=== PATIENT | female | born 2000 | race Caucasian/White ===

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

== ENCOUNTER 2019-05-14 23:00 | Emergency (ER) | payer OTHER ==
[~2019-05-14 23:00] MED LIST changes: +CEFTIN500 MG PO; +CLEOCIN HCL300 MG PO; +ENTYVIO IV; +NORCO 325 MG-7.1 TAB PO; +PREDNISONE10 MG PO; +ZOFRAN ODT4 MG PO
== END 2019-05-14 23:39 | disposition left against medical advice (07) ==
LOC: COL.ER 23:00
DX: Z72.9 Problem related to lifestyle, unspecified (principal)

== ENCOUNTER 2019-06-08 18:22 | Inpatient (IN) | payer BC ==
[~2019-06-08] VITALS: Ht 152.4 cm; Wt 47.0 kg
[2019-06-08] MEDS ORDERED: ALBUTEROL S0.4 MG/ML PO (18:42)
[2019-06-08 19:23] LABS: BASO % 0.5 % (0.0-2.0); EOS # 0.5 (0.0-0.7); EOS % 8.2 % (0-4.0); GRAN # 3.3 (1.4-6.5); HEMATOCRIT 37.2 % (35.0-45.0); HEMOGLOBIN 11.5 g/dl (12.0-15.0); LYMPH % 17.9 % (20.0-51.0); MEAN CELL VOLUME 76 fl (80.0-95.0); MEAN CORPUSCULAR HEMOGLOBIN 24 pg (26.0-32.0); MEAN CORPUSCULAR HGB CONC 31 g/dl (33.0-37.0); MEAN PLATELET VOLUME 8.8 fl (7.4-10.4); MONO # 0.7 (0.1-0.6); MONO % 11.9 % (1.7-9.3); PLATELET COUNT 375 K/mm3 (130-400); REDCELL DISTRIBUTION WIDTH-CV 19.1 % (11.5-14.5)
[2019-06-08 19:35] LABS: ALBUMIN 3.5 gm/dL (3.5-5.0); BILIRUBIN,TOTAL 0.3 mg/dL (0.0-1.0); C-REACTIVE PROTEIN 7.4 mg/dL (0.0-0.9); CALCIUM 8.8 mg/dL (8.4-10.2); CREATININE, serum 0.59 (0.52-1.25); POTASSIUM 3.6 mmol/L (3.4-5.0)
[2019-06-08 20:36] LABS: ERYTHROCYTE SEDIMENTATION RATE 43 mm/hr (0-20)
[2019-06-08 20:50] LABS: COLLECTION METHOD CLEAN CATCH
[2019-06-08 21:11] LABS: MUCOUS Present /lpf; PH 5 (5-8); SQUAMOUS EPITHELIAL 0-2 /hpf; URINE APPEARANCE Hazy; URINE BACTERIA None Seen /hpf; URINE BILIRUBIN Negative (NEGATIVE); URINE BLOOD Negative (NEGATIVE); URINE COLOR Yellow; URINE GLUCOSE Negative (NEGATIVE); URINE KETONE Negative (NEGATIVE); URINE LEUKOCYTE ESTERASE 1+ (NEGATIVE); URINE NITRATE Negative (NEGATIVE); URINE PROTEIN(semi-quant) Negative (NEGATIVE); URINE UROBILINOGEN Negative (NEGATIVE)
[2019-06-08 23:12] VITALS: BP 101/59; PULSE 98; TEMP 98.8
[2019-06-08] MEDS ORDERED: [UNRECOGNIZED DRUG - REMARK] (23:29)
--- NOTE | 2019-06-08 23:43 | NUR ---
Arrived to medical floor. Assessment completed. Lungs clear. Heart sounds normal. Bowels active x4. Pulses strong throughout. No edema. IV left AC without complications. Patient answered yes to suicidal questions-states considered jumping off a building. "I havent had thoughts for about 2 weeks, but I have been thinking about it on and off." House supervisior notified and Karime Alcantara APRN notified. Patient placed on suicidal precautions. All questions answered. Patient cooperative with all cares. SvenfrMicah marquez, at bedside.
[2019-06-09] VITALS (11 sets, daily range): BP systolic 90–101; BP diastolic 51–69; PULSE 98–123; TEMP 97.7–99.9
[2019-06-09] MEDS ORDERED: PROAIR HFA0.09 MG/AC IH (00:07)
[2019-06-09 00:27] LABS: ACETAMINOPHEN < 10 ug/mL (10-30); ALCOHOL(ethanol),MEDICAL < 10 mg/dL; SALICYLATE < 1.0 mg/dL
[2019-06-09 00:50] LABS: TRICYCLIC ANTIDEPRESS URINE NEGATIVE
--- NOTE | 2019-06-09 03:26 | NUR ---
WEB WORKER reports patient pulse 123 on dynamap. Apical pulse 120. No pain and no sx at this time. Attempted to contact Karime ARIAS-no answer will try again.
--- NOTE | 2019-06-09 03:30 | NUR ---
Spoke with HUGO Schaffer. x1 bolus of fluids, telemetry, and EKG.
--- NOTE | 2019-06-09 04:30 | NUR ---
Patient pulse 103 on telemetry. Will continue to monitor.
--- NOTE | 2019-06-09 06:13 | NUR ---
Rating pain 7/10 in ABD and head. Provided with PRN dilaudid at patient request. Denies other needs. Sitter remains in room with patient.
--- NOTE | 2019-06-09 06:19 | NUR ---
Patient tachycardia throughout night. Required tylenol and dilaudid for ABD pain and headache throughout night. Patient on suicide precautions-1:1 sitter remained in room with patient throughout night. Resting in bed this AM.
[2019-06-09 07:01] LABS: BASO % 0.4 % (0.0-2.0); EOS # 0.3 (0.0-0.7); EOS % 5.6 % (0-4.0); GRAN # 2.9 (1.4-6.5); GRAN % 57.6 % (42.2-75.2); LYMPH % 20.5 % (20.0-51.0); MEAN CELL VOLUME 77 fl (80.0-95.0); MEAN CORPUSCULAR HGB CONC 30 g/dl (33.0-37.0); MEAN PLATELET VOLUME 8.7 fl (7.4-10.4); MONO # 0.8 (0.1-0.6); MONO % 15.5 % (1.7-9.3); PLATELET COUNT 314 K/mm3 (130-400); RED BLOOD COUNT 4.05 M/mm3 (4.10-5.30); REDCELL DISTRIBUTION WIDTH-CV 18.8 % (11.5-14.5)
--- NOTE | 2019-06-09 07:08 | NUR ---
Report given to CHRISTINE Elizabeth. Consults called this AM to GI and urology.
[2019-06-09 07:22] LABS: HEMOGLOBIN 9.4 g/dl (12.0-15.0); MEAN CORPUSCULAR HEMOGLOBIN 23 pg (26.0-32.0)
[2019-06-09 07:25] LABS: C-REACTIVE PROTEIN 6.6 mg/dL (0.0-0.9); CALCIUM 7.6 mg/dL (8.4-10.2); CREATININE, serum 0.64 (0.52-1.25); POTASSIUM 3.3 mmol/L (3.4-5.0)
--- NOTE | 2019-06-09 07:45 | NUR ---
Patient resting in bed, ex boyfriend on the couch. Patient asleep but easily awakened. A&Ox3 reporting having a headache. Nursing staff present in the room. VSS. IV CDI, fluids infusing. Suicide precautions in place. No further needs expressed from patient. Call light within reach
--- NOTE | 2019-06-09 10:59 | NUR ---
SW attended clinical rounds. The patient's grandmother (Becca Isbell) and ex-boyfriend (Micah Veliz ph#[phone]) at bedside. The patient has been having suicidal ideation. Psych consulted, but not available until 06/12. [facility] to come screen the patient tomorrow, 06/10. ARCHIE then followed up with the patient alone to discuss discharge plan. 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 She states that she did not have a good home life growing up. Her father is out of the picture and she does not have much contact with her mother, Shashank Guevara. She states that she is still good friends with her ex-boyfriend. The patient has been receiving primary care at [facility] and she receives her medications at the [facility]. She reports occasional difficulties affording her meds. She states that she is getting on a payment plan for one of her meds. The patient does have a DPOA-HC completed. She designated her ex-boyfriend, Micah Veliz. She states that she still wants him as her DPOA-HC. Awaiting [facility] screen. SW to continue to follow.
--- NOTE | 2019-06-09 18:58 | NUR ---
Patient has had an uneventful day. The ex boyfriend and mother have been with the patient most of the shift. The patient was transfered from room 307 to 312 closer to the nurses station and no longer requiring a 1:1 sitter. Patient is A&Ox3, reporting nausea and a headache. Pain medication and nausea medication given when requested. VSS. IV CDI, fluids infusing. Nursing staff providing close monitoring of patient. Call light within reach.
--- NOTE | 2019-06-09 20:00 | NUR ---
Patient assessed at this time. Alert and oriented x 4, and able to make needs known. Reported nausea and pain to abdomen. Declined PRN pain medication at this time. Did take oral Zofran for nausea. NS running at 150 ml/hr to peripheral IV to left AC. Site is without redness, warmth, swelling, and pain. LS CTA. Respirations even and unlabored. Denies SOB and dyspnea. HRR. Telemetry on-sinus tachycardia. Capillary refill less than 3 seconds. Non-tenting skin turgor. BSAx4. Denies burning, pain, and discomfort with urination. Did report some diarrhea earlier. Continues on suicide risk observation. Denies having any questions, needs, or concerns at this time. Resting in bed on phone and laptop. Call light is within reach.
--- NOTE | 2019-06-10 00:29 | NUR ---
Patient complaining of nausea. Given PRN Zofran as requested. Voices no questions, needs, or concerns at this time. Resting in bed watching laptop at this time.
--- NOTE | 2019-06-10 04:00 | NUR ---
Patient woke up complaining of level 8 pain to abdomen. Given PRN Dilaudid per orders. Given warm blanket as requested. Voices no other questions, needs, or concerns at this time. Male friend at bedside at this time. Resting in bed with call light within reach. Suicide risk observation continues.
[2019-06-10 04:42] VITALS: BP 85/45; PULSE 100; TEMP 98.2
--- NOTE | 2019-06-10 05:55 | NUR ---
No further complaints of pain or discomfort at this time. When brush clearing laborer attempted to draw labs, patient refused, stating that she has bad veins and needs to keep good veins for IV sites. Spoke with hotel houseman. Attempting fingerstick at this time. Friend remains at bedside. Voices no other questions, needs, or concerns. NS continues to run at 150 ml/hr to left AC.
[2019-06-10 06:23] LABS: BASO % 0.3 % (0.0-2.0); EOS # 0.4 (0.0-0.7); EOS % 7.5 % (0-4.0); GRAN # 3.9 (1.4-6.5); GRAN % 67.8 % (42.2-75.2); HEMOGLOBIN 10.5 g/dl (12.0-15.0); LYMPH # 0.8 (1.2-3.4); LYMPH % 14.3 % (20.0-51.0); MEAN CELL VOLUME 74 fl (80.0-95.0); MEAN CORPUSCULAR HEMOGLOBIN 23 pg (26.0-32.0); MEAN CORPUSCULAR HGB CONC 32 g/dl (33.0-37.0); MEAN PLATELET VOLUME 8.5 fl (7.4-10.4); MONO # 0.6 (0.1-0.6); MONO % 9.6 % (1.7-9.3); PLATELET COUNT 329 K/mm3 (130-400); RED BLOOD COUNT 4.48 M/mm3 (4.10-5.30)
[2019-06-10 06:24] LABS: HEMATOCRIT 33.3 % (35.0-45.0)
[2019-06-10 06:54] LABS: CALCIUM 8.2 mg/dL (8.4-10.2); CREATININE, serum 0.58 (0.52-1.25); POTASSIUM 3.9 mmol/L (3.4-5.0)
[2019-06-10 08:23] VITALS: BP 86/50; PULSE 98; TEMP 98.1
--- NOTE | 2019-06-10 08:42 | NUR ---
Pt assessment complete. Pt is sleeping in bed upon entry, she arouses to voice. She currently denies pain but reports some nausea, PRN Zofran administered. Pt denies SOB or chest pain/palpitations despite having tachycardia while ambulating. IVF infusing without complications. Pt denies needs or questions at this time. Remains within view of the nursing desk.
--- NOTE | 2019-06-10 10:16 | NUR ---
Pt reporting middle abdominal pain 7/10, PRN pain medication administered. POC discussed with patient and reasoning for [facility] screening discussed with patient.
--- NOTE | 2019-06-10 12:23 | NUR ---
Supervisory Lifeguard stopped by but nothing needed at this time. Visited briefly with patient.
[2019-06-10 12:35] VITALS: BP 109/68; PULSE 99; TEMP 98.4
[2019-06-10] MEDS ORDERED: OMNICEF 300MG300 MG PO (14:35)
[2019-06-10] MEDS ORDERED: ZOFRAN ODT4 MG PO (14:36)
[2019-06-10] MEDS ORDERED: NORCO 325 MG-51 TAB PO (14:36)
--- NOTE | 2019-06-10 14:47 | NUR ---
This ARCHIE received a call from Patients nurse Maggie, who reported that [facility] indicated that the patient did not need a full screening. This ARCHIE spoke with Patient, who indicated that last S/I was 2 weeks ago, but that she had been busy. Patient did indicated that when alone she does have continual S/I, and she was due to be discharged today. ARCHIE contacted [facility] and spoke to Luz Marina who indicated that the Sign Shop Supervisor reported that the patient did not need a full screening unless she was a child. This ARCHIE spoke to her second shift supervisor, and then contacted live in housekeeper. [facility] was contacted again, and Galo agreed to complete a screening and a safety plan. [facility] faxed safety plan here, where patient signed the plan, and it was faxed back to [facility]. A copy was given to the nurse for the Dr to view, and ARCHIE took a copy for supervisory view.
--- NOTE | 2019-06-10 15:17 | NUR ---
Discharge paperwork and instructions reviewed with patient. All questions answered at this time. Pt encouraged to seek help if suicide ideations return. Crisis and safety plan sent with patient. She verbalizes understanding. IV to LAC dc'd, catheter tip intact. Flu shot administered prior to discharge. Pt walked out at this time.
== END 2019-06-10 15:21 | disposition home or self-care (01) | DRG 690 ==
LOC: COL.ER 18:22 → MEDICAL 21:50
PROVIDERS: Emergency Medicine; Nurse Practitioner Family; Physician Assistant; ADMIT Internal Medicine
DX: N12 Tubulo-interstitial nephritis, not specified as acute or chronic (principal); K50.90 Crohn's disease, unspecified, without complications; R45.851 Suicidal ideations; K92.0 Hematemesis; C85.99 Non-Hodgkin lymphoma, unspecified, extranodal and solid organ sites; R00.0 Tachycardia, unspecified; J45.909 Unspecified asthma, uncomplicated; E87.6 Hypokalemia; I95.9 Hypotension, unspecified; D50.9 Iron deficiency anemia, unspecified; Z88.1 Allergy status to other antibiotic agents; Z88.8 Allergy status to other drugs, medicaments and biological substances
CPT/HCPCS: 99222-AI; 99239; A4216; C9113; J0696; J1170; J2405; J7030; Q9967

== ENCOUNTER 2019-06-18 02:19 | Emergency (ER) | payer BC ==
[~2019-06-18] VITALS: Ht 152.4 cm; Wt 45.5 kg
[~2019-06-18 02:19] MED LIST changes: +ALBUTEROL S0.4 MG/ML PO; +OMNICEF 300MG300 MG PO; +PROAIR HFA0.09 MG/AC IH; +[UNRECOGNIZED DRUG - REMARK]
[2019-06-18 02:26] VITALS: TEMP 97.6
[2019-06-18 03:31] LABS: COLLECTION METHOD CLEAN CATCH
[2019-06-18 03:34] LABS: BASO % 0.3 % (0.0-2.0); EOS # 0.4 (0.0-0.7); EOS % 3.9 % (0-4.0); GRAN # 6.4 (1.4-6.5); GRAN % 71.5 % (42.2-75.2); HEMOGLOBIN 10.9 g/dl (12.0-15.0); LYMPH # 1.3 (1.2-3.4); LYMPH % 14.4 % (20.0-51.0); MEAN CELL VOLUME 76 fl (80.0-95.0); MEAN CORPUSCULAR HEMOGLOBIN 24 pg (26.0-32.0); MEAN CORPUSCULAR HGB CONC 31 g/dl (33.0-37.0); MEAN PLATELET VOLUME 8.5 fl (7.4-10.4); MONO # 0.9 (0.1-0.6); MONO % 9.6 % (1.7-9.3); PLATELET COUNT 355 K/mm3 (130-400); REDCELL DISTRIBUTION WIDTH-CV 18.9 % (11.5-14.5)
[2019-06-18 03:37] LABS: MUCOUS Present /lpf; PH 6 (5-8); SQUAMOUS EPITHELIAL None Seen /hpf; URINE APPEARANCE Clear; URINE BACTERIA Rare /hpf; URINE BILIRUBIN Negative (NEGATIVE); URINE BLOOD Negative (NEGATIVE); URINE COLOR Yellow; URINE GLUCOSE Negative (NEGATIVE); URINE KETONE Negative (NEGATIVE); URINE LEUKOCYTE ESTERASE 1+ (NEGATIVE); URINE NITRATE Negative (NEGATIVE); URINE PROTEIN(semi-quant) Negative (NEGATIVE); URINE UROBILINOGEN Negative (NEGATIVE)
[2019-06-18 03:46] LABS: ALBUMIN 3.4 gm/dL (3.5-5.0); BILIRUBIN,TOTAL 0.2 mg/dL (0.0-1.0); C-REACTIVE PROTEIN 6.4 mg/dL (0.0-0.9); CREATININE, serum 0.83 (0.52-1.25); POTASSIUM 3.9 mmol/L (3.4-5.0); TOTAL PROTEIN 6.7 gm/dL (6.4-8.2)
[2019-06-18 04:30] VITALS: BP 101/74
[2019-06-18] MEDS ORDERED: PERCOCET 325 MG1 TA2 PO (04:55)
[2019-06-18] MEDS ORDERED: PHENERGAN 25 TA25 MG PO (04:59)
[2019-06-18 06:00] VITALS: PULSE 70
== END 2019-06-18 06:20 | disposition home or self-care (01) ==
LOC: COL.ER 02:19
PROVIDERS: Emergency Medicine
DX: N12 Tubulo-interstitial nephritis, not specified as acute or chronic (principal)
CPT/HCPCS: A4216; J0696; J1885; J2270; J2550; J7030

== ENCOUNTER 2019-07-12 00:29 | Emergency (ER) | payer BC ==
[~2019-07-12] VITALS: Ht 154.9 cm; Wt 43.2 kg
[~2019-07-12 00:29] MED LIST changes: +PERCOCET 325 MG1 TA2 PO
[2019-07-12 00:33] VITALS: TEMP 99.1
[2019-07-12 00:51] LABS: BASO % 0.4 % (0.0-2.0); EOS # 0.2 (0.0-0.7); GRAN # 5.6 (1.4-6.5); GRAN % 66.3 % (42.2-75.2); HEMATOCRIT 37.4 % (35.0-45.0); HEMOGLOBIN 11.9 g/dl (12.0-15.0); LYMPH # 1.6 (1.2-3.4); LYMPH % 18.4 % (20.0-51.0); MEAN CELL VOLUME 76 fl (80.0-95.0); MEAN CORPUSCULAR HEMOGLOBIN 24 pg (26.0-32.0); MEAN CORPUSCULAR HGB CONC 32 g/dl (33.0-37.0); MEAN PLATELET VOLUME 8.3 fl (7.4-10.4); MONO # 1.1 (0.1-0.6); MONO % 12.5 % (1.7-9.3); PLATELET COUNT 374 K/mm3 (130-400); REDCELL DISTRIBUTION WIDTH-CV 17.5 % (11.5-14.5)
[2019-07-12 01:06] LABS: ALBUMIN 3.5 gm/dL (3.5-5.0); BILIRUBIN,TOTAL 0.2 mg/dL (0.0-1.0); C-REACTIVE PROTEIN 6.1 mg/dL (0.0-0.9); CALCIUM 8.9 mg/dL (8.4-10.2); CREATININE, serum 0.72 (0.52-1.25); POTASSIUM 4.5 mmol/L (3.4-5.0); TOTAL PROTEIN 6.7 gm/dL (6.4-8.2)
[2019-07-12] MEDS ORDERED: MIRENA52 MG IY (01:14)
[2019-07-12] MEDS ORDERED: VANCOCIN H250 MG/CAP PO (01:15)
[2019-07-12 02:39] LABS: COLLECTION METHOD CLEAN CATCH
[2019-07-12 02:44] LABS: MUCOUS Present /lpf; PH 7 (5-8); SQUAMOUS EPITHELIAL 0-2 /hpf; URINE APPEARANCE Clear; URINE BACTERIA None Seen /hpf; URINE BILIRUBIN Negative (NEGATIVE); URINE BLOOD Negative (NEGATIVE); URINE COLOR Straw; URINE GLUCOSE Negative (NEGATIVE); URINE KETONE Negative (NEGATIVE); URINE LEUKOCYTE ESTERASE Negative (NEGATIVE); URINE NITRATE Negative (NEGATIVE); URINE PROTEIN(semi-quant) Negative (NEGATIVE); URINE RBC 0-2 /hpf; URINE UROBILINOGEN Negative (NEGATIVE)
[2019-07-12] MEDS ORDERED: NORCO 325 MG-51 TAB PO (02:58)
[2019-07-12] MEDS ORDERED: ZOFRAN 4MG T4 MG/TAB PO (02:58)
[2019-07-12 03:39] VITALS: BP 111/72; PULSE 98
== END 2019-07-12 03:39 | disposition home or self-care (01) ==
LOC: COL.ER 00:29
PROVIDERS: Emergency Medicine
DX: R11.2 Nausea with vomiting, unspecified (principal); R19.7 Diarrhea, unspecified; R10.84 Generalized abdominal pain; J45.909 Unspecified asthma, uncomplicated; Z87.19 Personal history of other diseases of the digestive system
CPT/HCPCS: J1630; J2405; J3010; J7030; Q9967

== ENCOUNTER 2019-07-31 22:05 | Inpatient (IN) | payer BC ==
[~2019-07-31] VITALS: Ht 152.4 cm; Wt 52.6 kg
[~2019-07-31 22:05] MED LIST changes: +MIRENA52 MG IY; +VANCOCIN H250 MG/CAP PO; +ZOFRAN 4MG T4 MG/TAB PO
[2019-07-31 22:57] LABS: BASO % 0.4 % (0.0-2.0); EOS # 0.4 (0.0-0.7); EOS % 4.6 % (0-4.0); GRAN # 5.5 (1.4-6.5); GRAN % 67.3 % (42.2-75.2); HEMOGLOBIN 11.7 g/dl (12.0-15.0); LYMPH # 1.3 (1.2-3.4); LYMPH % 15.7 % (20.0-51.0); MEAN CELL VOLUME 79 fl (80.0-95.0); MEAN CORPUSCULAR HEMOGLOBIN 25 pg (26.0-32.0); MEAN CORPUSCULAR HGB CONC 32 g/dl (33.0-37.0); MEAN PLATELET VOLUME 8.2 fl (7.4-10.4); MONO # 0.9 (0.1-0.6); MONO % 11.1 % (1.7-9.3); PLATELET COUNT 328 K/mm3 (130-400); RED BLOOD COUNT 4.67 M/mm3 (4.10-5.30)
[2019-07-31 23:10] LABS: ALBUMIN 2.9 gm/dL (3.5-5.0); BILIRUBIN,TOTAL 0.2 mg/dL (0.0-1.0); C-REACTIVE PROTEIN 5.3 mg/dL (0.0-0.9); CALCIUM 8.3 mg/dL (8.4-10.2); CREATININE, serum 0.55 (0.52-1.25); POTASSIUM 3.9 mmol/L (3.4-5.0); TOTAL PROTEIN 5.8 gm/dL (6.4-8.2)
[2019-07-31] MEDS ORDERED: PRILOSEC10 MG PO (23:16)
[2019-07-31] MEDS ORDERED: QUESTRAN4 GM/9 GM PO (23:16)
[2019-07-31] MEDS ORDERED: PROZAC 10MG10 MG PO (23:16)
[2019-07-31] MEDS ORDERED: PROMETHAZINE12.5 M5 PO (23:16)
[2019-07-31 23:58] LABS: COLLECTION METHOD CLEAN CATCH
[2019-08-01] VITALS (22 sets, daily range): BP systolic 92–133; BP diastolic 50–80; PULSE 18–146; TEMP 98–103.1; O2SAT 99
[2019-08-01 00:09] LABS: MUCOUS Present /lpf; PH 6 (5-8); SQUAMOUS EPITHELIAL 0-2 /hpf; URINE APPEARANCE Clear; URINE BACTERIA None Seen /hpf; URINE BILIRUBIN Negative (NEGATIVE); URINE BLOOD Negative (NEGATIVE); URINE COLOR Yellow; URINE GLUCOSE Negative (NEGATIVE); URINE KETONE Negative (NEGATIVE); URINE LEUKOCYTE ESTERASE Trace (NEGATIVE); URINE NITRATE Negative (NEGATIVE); URINE PROTEIN(semi-quant) Negative (NEGATIVE); URINE RBC 0-2 /hpf; URINE UROBILINOGEN Negative (NEGATIVE)
--- NOTE | 2019-08-01 02:10 | NUR ---
Report received from Vicki CRAYON GRADER and patient admitted to room 242. Patient alert and oriented x 4. Patient received IV dilaudid just prior to admit to floor and requesting pain med for RLQ abdominal pain 8/10 intermittent sharp pain. Jodie ARIAS phoned and no answer at this time.
--- NOTE | 2019-08-01 02:40 | NUR ---
Jodie ARIAS called and new order for dilaudid IV now obtained and given SIV. Patient rests in bed. Mouth swabs given for dry mouth. IVF's and rocephin reviewed and begun. See admission assessment.
[2019-08-01] MEDS ORDERED: LOTRIMIN15 GM TOP (03:14)
--- NOTE | 2019-08-01 03:15 | NUR ---
Patient reports pain decreased to 5/10 at this time.
--- NOTE | 2019-08-01 04:42 | NUR ---
New orders received for mso4 for continued RLQ abdominal pain 7-8/10 on pain scale and given. SCD's applied. Tele and RT notified of new orders. Phenergan given IV in 50mls bag as ordered for nausea/no emesis. Patient rests with eyes closed around 10-15 minutes following IV morphine. Stool for occult blood card and new hat placed in bathroom.
--- NOTE | 2019-08-01 05:29 | NUR ---
Patient rests with eyes closed. Respirations shallow with ease.
--- NOTE | 2019-08-01 06:30 | NUR ---
Reported on to CHRISTINE Alejandre
[2019-08-01 06:58] LABS: HEMATOCRIT 30.6 % (35.0-45.0); HEMOGLOBIN 9.6 g/dl (12.0-15.0)
--- NOTE | 2019-08-01 09:49 | NUR ---
Concrete Bucket Hooker met with the patient to discuss discharge planning. Patient lives alone in [place] and works at [employer]. Patient states she has no family support in the area. Patient also states she sees Jennifer Pham for primary care and obtains medications from [facility] pharmacy. Patient is independent with ADLS and does not use any DME. Patient has Advance Directives in EMR. Patient plans to return home upon discharge. SW to continue to follow as needed.
--- NOTE | 2019-08-01 09:50 | NUR ---
Patient drowsy, awakens to verbal stimuli. Closes eyes and turns away multiple times during assessment. Abdomen soft, non tender, non distended. Bowel sounds active x4 quads. +Flatus. No bowel movement. Requests to be left alone to sleep.
--- NOTE | 2019-08-01 10:01 | NUR ---
Shift assessment completed. Pt presents with RLQ pain. States pain is at 7-8/10 intermittent sharp pain. Admits nausea. Denies vomiting. Remains NPO due to bowel rest. IV in L antecubital NS 1000 Ml @ 150 Ml/hr. Is on tele. SCDs to BLE.
--- NOTE | 2019-08-01 10:53 | NUR ---
Reported off to Pili KING
--- NOTE | 2019-08-01 10:55 | NUR ---
Dr Redd notified of consult.
[2019-08-01 11:27] LABS: MAGNESIUM 1.4 mg/dL (1.6-2.3); PHOSPHOROUS 3.5 mg/dL (2.5-4.5)
--- NOTE | 2019-08-01 11:31 | NUR ---
Loader Operator attended clinical rounds with the team. Hospitalist discussed oncology consultation with patient. SW to continue to follow as needed.
--- NOTE | 2019-08-01 11:31 | NUR ---
Dr Burnett notified of consult.
[2019-08-01 11:34] LABS: PRE ALBUMIN 12.2 mg/dL (17.6-36.0)
--- NOTE | 2019-08-01 18:35 | NUR ---
Attempts made by two RNs and MASTER GREAT LAKES for multiple IV starts. Per MASTER GREAT LAKES recommendations, surgery consult for central line placement, order received and Dr Egan notified. Patient to PACU with PACU staff at 1825.
[2019-08-01 19:05] LABS: HEMATOCRIT 43.3 % (35.0-45.0)
[2019-08-01 19:08] LABS: IRON,SERUM 54 ug/dL (35-150)
[2019-08-01 19:18] LABS: TOTAL IRON BINDING CAPACITY 232 ug/dL (265-497)
[2019-08-01 19:21] LABS: HEMOGLOBIN 13.3 g/dl (12.0-15.0)
--- NOTE | 2019-08-01 20:15 | NUR ---
PATIENT BACK FROM PACU, POST CENTRAL LINE PLACEMENT TO RIGHT CHEST, IVF ATTACHED TO TLSC PORTS WITH PATIENT REQUESTING SUPERVISOR VENDOR QUALITY SET BEFORE VS CAN BE TAKEN. TEMP REPORTED AT 102.9 DEGREES ORALLY, REPORTED TO A DOREEN MANAGER CT, ORDERS GIVEN. ATTEMPTED TO GIVE TYLENOL SUPP THAT PATIENT REFUSED, HELENA DE GUZMANN INFORMED WITH ORDERS FOR ORAL TYLENOL ORDERED AND GIVEN TO PATIENT. IVF NS BOLUS STARTED ORDERED
--- NOTE | 2019-08-01 21:20 | NUR ---
REPORT CALLED TO NAKUL RENTERIA, TO BE TRANSFERED TO ICU BED 7
[2019-08-02] VITALS (259 sets, daily range): BP systolic 90–110; BP diastolic 49–77; PULSE 67–106; TEMP 97.4–98.8; O2SAT 38–100
--- NOTE | 2019-08-02 01:35 | NUR ---
2114 - REPORT RECEIVED FROM CHRISTINE NUNEZ. 2139 - PT ARRIVED IN UNIT, TRANSFER FROM SURGICAL FLOOR TO ICU. PT CRYING SHE WAS TRYING TO TRANSFER HERSELF TO BED. PT VERBALIZED SHE IS REALLY CLAUSTROPHOBIC. PT FINALLY CALMED DOWN 15 MINS LATER.
[2019-08-02 05:20] LABS: MEAN CELL VOLUME 81 fl (80.0-95.0); MEAN CORPUSCULAR HGB CONC 31 g/dl (33.0-37.0); MEAN PLATELET VOLUME 8.3 fl (7.4-10.4); PLATELET COUNT 245 K/mm3 (130-400); RED BLOOD COUNT 4.18 M/mm3 (4.10-5.30); REDCELL DISTRIBUTION WIDTH-CV 16.4 % (11.5-14.5)
[2019-08-02 05:24] LABS: HEMATOCRIT 33.8 % (35.0-45.0); HEMOGLOBIN 10.4 g/dl (12.0-15.0); MEAN CORPUSCULAR HEMOGLOBIN 25 pg (26.0-32.0)
[2019-08-02 05:29] LABS: ALBUMIN 2.3 gm/dL (3.5-5.0); BILIRUBIN,TOTAL 2.1 mg/dL (0.0-1.0); CREATININE, serum 0.66 (0.52-1.25); POTASSIUM 3.8 mmol/L (3.4-5.0); TOTAL PROTEIN 4.9 gm/dL (6.4-8.2)
[2019-08-02 06:06] LABS: ANISOCYTOSIS 1+; BAND 62 % (0-10); EOSINOPHIL 2 % (0-4); LYMPHOCYTE 10 % (20.0-51.0); NEUTROPHILS 19 % (42.0-75.2); OVALOCYTES 1+; PLATELET ESTIMATE NORMAL (NORMAL)
--- NOTE | 2019-08-02 07:25 | NUR ---
REPORT GIVEN TO CHRISTINE QUILES.
--- NOTE | 2019-08-02 08:00 | NUR ---
SPOKE TO PT'S NURSE, ETTA, AND LET HER KNOW WE WOULD GET PATIENT AROUND 1200 FOR THE BIOPSY. THE BIOPSY MAY BE DONE IN EITHER CT OR ULTRASOUND. I SPOKE TO THE NURSE AND ASKED HER TO PUT BOTH ON HER CONSENT.
[2019-08-02 10:32] LABS: INR 1.1 (0.8-3.0); PROTHROMBIN TIME 12.6 SECONDS (9.7-12.8)
--- NOTE | 2019-08-02 13:05 | NUR ---
PT WAS BROUGHT IN TO CT ROOM IN WHEELCHAIR AND ASSISTED ONTO CT BED. MONITORING EQUIPMENT PLACED ON PT. IVF NS @ 150 CC/HR, ZOSYN @ 20 CC/HR, MORPHINE SOLAR INSTALLATION MANAGER DEMAND ONLY, 27.5 MG IN SYRINGE. IMAGING DONE.
--- NOTE | 2019-08-02 13:26 | NUR ---
First visit from the dock clerk. No needs right now.
--- NOTE | 2019-08-02 13:30 | NUR ---
SPECIMEN X3 OBTAINED AT 1326. PT WAS CLEANED UP AND BANDAIDE PLACED OVER THE SITE. MONITORING EQUIPMENT EQUIPMENT REMOVED. PT WAS ASSISTED BACK TO WHEELCHAIR AND TAKEN BACK TO ICU 7.
--- NOTE | 2019-08-02 13:58 | NUR ---
PT ASKED FOR THE INNER TUBE INSERTER AND WAS GIVEN 1 MG MORPHINE, SYRINGE 26.5.
--- NOTE | 2019-08-02 14:03 | NUR ---
REPORT CALLED TO PT'S NURSE.
--- NOTE | 2019-08-02 14:23 | NUR ---
CBX OPERATOR student met with the patient. The patient was concerned about not always being able to olive picker her medications. A list of pharmacies that deliver medications provided to the patient. horticultural services supervisor will continue to follow.
--- NOTE | 2019-08-02 14:36 | NUR ---
SPOKE WITH REGARDING TPN AND BANANA BAG ORDERS. WILL DC BANANA BAG. ALSO CHANGED IV PROMETHAZINE TO PO WHICH PT TAKES AT HOME. PT STATES SHE HAS TAKEN HUMIRA BEFORE WITH NO REACTION. DR OQUENDO ASKED THAT WE NOTIFY GI OF ABOVE. SPOKE WITH REGARDING PT PREVIOUSLY TAKEN HUMIRA WITH NO REACTION. STATES CONTIUE WITH PREMEDICATIONS PLANNED.
[2019-08-02 17:15] LABS: MAGNESIUM 1.6 mg/dL (1.6-2.3); PHOSPHOROUS 4.2 mg/dL (2.5-4.5)
[2019-08-02 17:21] LABS: PRE ALBUMIN 9.6 mg/dL (17.6-36.0)
--- NOTE | 2019-08-02 20:55 | NUR ---
REPORT GIVEN TO CHRISTINE BELTRAN. PT TRANSFERRED TO ROOM 16.
--- NOTE | 2019-08-02 21:00 | NUR ---
Assessment complete at this time. Patient has TLC cath to RIJ infusing TPN. Reports stomach pain, provided with warm blanket-pain resolved. Denies other needs at this time. [employer] morphine replaced and verified by CHRISTINE Crawford. Call light in reach.
--- NOTE | 2019-08-02 21:55 | NUR ---
Patient wanting to eat sandwich. Requested phenergan prior to eating. Obtained one time order for phenergan at this time. Denies other needs. Call light in reach.
--- NOTE | 2019-08-02 23:06 | NUR ---
Patient woke up screaming. States "I have PTSD and had a nightmare." Stayed with patient until no longer crying. Denies other needs at this time. Will monitor.
[2019-08-03] VITALS (403 sets, daily range): BP systolic 90–110; BP diastolic 57–70; PULSE 60–105; TEMP 97.7–98.3; O2SAT 86–100
--- NOTE | 2019-08-03 00:10 | NUR ---
Resting in bed. Denies needs. Reports 03/08 pain ABD and "kidney" pain. Used PROJECT DESIGNER. Denies other needs at this time. Call light in reach.
--- NOTE | 2019-08-03 02:35 | NUR ---
Up to restroom and returned to bed. Denies other needs. Call light in reach.
--- NOTE | 2019-08-03 06:16 | NUR ---
Patient ambulating in hallway at this time with assistance from staff and returned to bed. Denies other needs. call light in reach.
--- NOTE | 2019-08-03 07:34 | NUR ---
Patient resting in bed this AM. Provided with tea and clean gown. Denies other needs. Report given to CHRISTINE Gomez
[2019-08-03 07:53] LABS: MEAN CELL VOLUME 82 fl (80.0-95.0); MEAN CORPUSCULAR HGB CONC 31 g/dl (33.0-37.0); MEAN PLATELET VOLUME 8.6 fl (7.4-10.4); PLATELET COUNT 277 K/mm3 (130-400); RED BLOOD COUNT 3.75 M/mm3 (4.10-5.30); REDCELL DISTRIBUTION WIDTH-CV 16.5 % (11.5-14.5)
[2019-08-03 07:54] LABS: ALBUMIN 2.2 gm/dL (3.5-5.0); BILIRUBIN,TOTAL 0.1 mg/dL (0.0-1.0); CALCIUM 7.3 mg/dL (8.4-10.2); CREATININE, serum 0.54 (0.52-1.25); MAGNESIUM 1.8 mg/dL (1.6-2.3); PHOSPHOROUS 2.4 mg/dL (2.5-4.5); POTASSIUM 4.1 mmol/L (3.4-5.0); TOTAL PROTEIN 4.5 gm/dL (6.4-8.2)
[2019-08-03 08:14] LABS: HEMATOCRIT 30.7 % (35.0-45.0); HEMOGLOBIN 9.4 g/dl (12.0-15.0); MEAN CORPUSCULAR HEMOGLOBIN 25 pg (26.0-32.0)
[2019-08-03 09:02] LABS: BAND 59 % (0-10); LYMPHOCYTE 7 % (20.0-51.0); MYELOCYTE 2 % (0-0); NEUTROPHILS 22 % (42.0-75.2)
[2019-08-03 09:08] LABS: PLATELET ESTIMATE NORMAL (NORMAL)
[2019-08-03 09:09] LABS: HYPOCHROMIA 2+; MICROCYTOSIS 1+
[2019-08-03 09:10] LABS: ANISOCYTOSIS 1+
--- NOTE | 2019-08-03 12:00 | NUR ---
MORPHINE ACADEMIC ADVISER SYRINGE EMPTY. SYRINGE DISCARDED IN MED ROOM IN SHARPS CONTAINER. PAIN MEDICATION CHANGED TO PO.
--- NOTE | 2019-08-03 13:19 | NUR ---
The patient is to move to medical floor this day. Amazal from nutrition department reports the patient will most likely need home TPN at discharge. corporate services manager will continue to follow.
--- NOTE | 2019-08-03 16:04 | NUR ---
PT RESTING COMFORTABLY AT THIS TIME.
--- NOTE | 2019-08-03 19:25 | NUR ---
RECEIVED REPORT FROM CHRISTINE ROLLINS. PT LYING IN BED PLAYING ON COMPUTER. PT ASKS WHEN SHE CAN HAVE PAIN MEDICATION, NOTIFIED PT NOT UNTIL AT LEAST 2100, SEE MAR FOR ADMINISTRATION. VERBALIZED UNDERSTADING. CALL LIGHT WITHIN REACH. PT ON 1L VIA [place]. NO ACUTE S/S OF RESP DISTRESS NOTED.
[2019-08-04] VITALS (241 sets, daily range): BP systolic 90–110; BP diastolic 50–72; PULSE 66–78; TEMP 97.6–98.3; O2SAT 97–100
[2019-08-04 05:15] LABS: MEAN CELL VOLUME 83 fl (80.0-95.0); MEAN CORPUSCULAR HGB CONC 31 g/dl (33.0-37.0); MEAN PLATELET VOLUME 8.2 fl (7.4-10.4); PLATELET COUNT 248 K/mm3 (130-400); RED BLOOD COUNT 3.66 M/mm3 (4.10-5.30); REDCELL DISTRIBUTION WIDTH-CV 17.1 % (11.5-14.5)
[2019-08-04 05:16] LABS: HEMATOCRIT 30.2 % (35.0-45.0); HEMOGLOBIN 9.4 g/dl (12.0-15.0); MEAN CORPUSCULAR HEMOGLOBIN 26 pg (26.0-32.0)
[2019-08-04 05:26] LABS: ALANINE AMINOTRANSFERASE 12 U/L (9-52); ALBUMIN 2.1 gm/dL (3.5-5.0); ALKALINE PHOSPHATASE 50 U/L (50-136); ANION GAP 2 mmol/L (7-16); AST,SGOT 9 U/L (15-37); BILIRUBIN,TOTAL < 0.1 mg/dL (0.0-1.0); BLOOD UREA NITROGEN 12 mg/dL (7-17); CALCIUM 7.7 mg/dL (8.4-10.2); CARBON DIOXIDE 28 mmol/L (22-30); CHLORIDE 110 mmol/L (98-107); GLUCOSE 88 mg/dL (74-106); MAGNESIUM 2.1 mg/dL (1.6-2.3); PHOSPHOROUS 3.3 mg/dL (2.5-4.5); POTASSIUM 3.9 mmol/L (3.4-5.0); SODIUM 141 mmol/L (137-145); TOTAL PROTEIN 4.3 gm/dL (6.4-8.2)
[2019-08-04 05:50] LABS: ANISOCYTOSIS 1+; BAND 34 % (0-10); EOSINOPHIL 2 % (0-4); LYMPHOCYTE 31 % (20.0-51.0); METAMYELOCYTE 7 % (0-0); MYELOCYTE 1 % (0-0); NEUTROPHILS 16 % (42.0-75.2); OVALOCYTES 1+; PLATELET ESTIMATE NORMAL (NORMAL)
--- NOTE | 2019-08-04 07:20 | NUR ---
Report received from Frank KING and care resumed.
--- NOTE | 2019-08-04 07:40 | NUR ---
Dr Redd in to see pt at this time. No new orders.
[2019-08-04 08:25] LABS: PATHOLOGY DIFF REVIEW OK
--- NOTE | 2019-08-04 11:50 | NUR ---
Hospitalist in to see pt at this time.
--- NOTE | 2019-08-04 14:15 | NUR ---
Report called to Atiya KING on medical floor. Pt to transfer to room 350 per wheelchair with tele. Will continue to follow.
--- NOTE | 2019-08-04 14:30 | NUR ---
PATIENT ARRIVED TO ROOM 350 VIA WHEELCHAIR FROM ICU. PATIENT ORIENTED TO ROOM. BOYFRIEND PRESENT AT THE BEDSIDE. CALL LIGHT WITHIN REACH.
--- NOTE | 2019-08-04 15:30 | NUR ---
SEE SHIFT ASSESSMENT.
--- NOTE | 2019-08-04 20:00 | NUR ---
REPORT GIVEN TO CHRISTINE FARIA.
--- NOTE | 2019-08-04 20:30 | NUR ---
Lying in bed with eyes open. Rates abdominal pain /10. Administered pain medication as prescribed. Patient says that she feels like her abdominal area has small amount of swelling. Bilat feet with 1+ edema. TPN infusing as prescribed. Patient denies further needs at this time.
--- NOTE | 2019-08-05 | NUR ---
Sitting up in bed. Patient says that this is the first night in a while that she has a little bit of energy and some appetite. Patient was up and ambulated in halls. Ate a sandwich box with chips. Patient says that her pain level is okay at this time. Denies further needs at this time.
--- NOTE | 2019-08-05 00:39 | NUR ---
Patient requests pain medication for abd pain. Feels like the intensity is going back up. Administered pain medication as prescribed. Patient denies further needs at this time.
[2019-08-05 04:25] VITALS: BP 102/65; PULSE 70; TEMP 97.7
--- NOTE | 2019-08-05 04:41 | NUR ---
Lying in bed on left side with eyes closed. Eyes open when name called out. Explains that her pain is tolerable at this time in her stomach. Denies any further needs at this time. TPN continues to infuse without difficulty.
--- NOTE | 2019-08-05 05:54 | NUR ---
Pain is increasing in abdomen, rating 6/10. Administered pain medication as prescribed per patient request. Patient was up to bathroom, urinated and had loose stool. Asked patient if there was blood in her stool and patient says "Mhm". Patient denies further needs at this time.
[2019-08-05 06:22] LABS: HEMOGLOBIN 10.1 g/dl (12.0-15.0); MEAN CELL VOLUME 83 fl (80.0-95.0); MEAN CORPUSCULAR HEMOGLOBIN 25 pg (26.0-32.0); MEAN CORPUSCULAR HGB CONC 31 g/dl (33.0-37.0); MEAN PLATELET VOLUME 8.4 fl (7.4-10.4); PLATELET COUNT 302 K/mm3 (130-400); RED BLOOD COUNT 3.98 M/mm3 (4.10-5.30); REDCELL DISTRIBUTION WIDTH-CV 17.2 % (11.5-14.5)
[2019-08-05 06:34] LABS: HEMATOCRIT 32.9 % (35.0-45.0)
[2019-08-05 06:41] LABS: ALANINE AMINOTRANSFERASE 17 U/L (9-52); ALBUMIN 2.4 gm/dL (3.5-5.0); ALKALINE PHOSPHATASE 55 U/L (50-136); ANION GAP 2 mmol/L (7-16); AST,SGOT 13 U/L (15-37); BILIRUBIN,TOTAL < 0.1 mg/dL (0.0-1.0); BLOOD UREA NITROGEN 15 mg/dL (7-17); CALCIUM 7.9 mg/dL (8.4-10.2); CARBON DIOXIDE 32 mmol/L (22-30); CHLORIDE 105 mmol/L (98-107); CREATININE, serum 0.68 (0.52-1.25); GLUCOSE 93 mg/dL (74-106); MAGNESIUM 1.9 mg/dL (1.6-2.3); PHOSPHOROUS 4.9 mg/dL (2.5-4.5); POTASSIUM 3.9 mmol/L (3.4-5.0); SODIUM 139 mmol/L (137-145); TOTAL PROTEIN 4.9 gm/dL (6.4-8.2)
[2019-08-05 08:10] VITALS: BP 91/51; PULSE 64; TEMP 98
[2019-08-05 10:02] LABS: BAND 30 % (0-10); EOSINOPHIL 2 % (0-4); LYMPHOCYTE 33 % (20.0-51.0); METAMYELOCYTE 2 % (0-0); MYELOCYTE 2 % (0-0); NEUTROPHILS 25 % (42.0-75.2)
[2019-08-05 10:03] LABS: ANISOCYTOSIS 1+; HYPOCHROMIA 3+; PLATELET ESTIMATE NORMAL (NORMAL)
[2019-08-05 11:17] VITALS: BP 97/50; PULSE 57; TEMP 98
[2019-08-05 15:37] VITALS: BP 109/58; PULSE 91; TEMP 98.2
[2019-08-05] MEDS ORDERED: PROMETHAZINE12.5 M5 PO (15:55)
[2019-08-05] MEDS ORDERED: NORCO 325 MG-51 TAB PO (15:55)
--- NOTE | 2019-08-05 17:00 | NUR ---
Patient is discharging home. Discharge instructions discussed with patient. No questions verbalized. IJ discontinued by Nydia Andres RN. Patient has prescriptions for phenergan and norco. All belongings packed up by patient. She called an [employer] for a ride. Copies of discharge instructions sent with patient. She already has an appointment with her GI specialist. Patient walked out via wheel chair by Britni GALLEGOS.
== END 2019-08-05 17:00 | disposition home or self-care (01) | DRG 871 ==
LOC: COL.ER 22:05 → SURG 08-01 01:42 → ICU 08-01 01:42 → SURG 08-01 15:49 → ICU 08-01 21:45 → IMCU 08-02 20:53 → SURG 08-04 14:35
PROVIDERS: Emergency Medicine; Internal Medicine Pulmonary Disease; Nurse Practitioner Family; Physician Assistant; Surgery
PROC: 05HM33Z Insertion of Infusion Device into Right Internal Jugular Vein, Percutaneous Approach (ICD-10-PCS; principal; 2019-08-01 19:00)
PROC: 0TB13ZX Excision of Left Kidney, Percutaneous Approach, Diagnostic (ICD-10-PCS; 2019-08-02)
PROC: 02PYX3Z Removal of Infusion Device from Great Vessel, External Approach (ICD-10-PCS; 2019-08-05)
DX: A41.9 Sepsis, unspecified organism (principal); E43 Unspecified severe protein-calorie malnutrition; K50.911 Crohn's disease, unspecified, with rectal bleeding; N12 Tubulo-interstitial nephritis, not specified as acute or chronic; N28.9 Disorder of kidney and ureter, unspecified; G89.29 Other chronic pain; L80 Vitiligo; R73.9 Hyperglycemia, unspecified; E83.39 Other disorders of phosphorus metabolism; J45.20 Mild intermittent asthma, uncomplicated; D50.9 Iron deficiency anemia, unspecified; Z90.49 Acquired absence of other specified parts of digestive tract; Z79.891 Long term (current) use of opiate analgesic; Z88.8 Allergy status to other drugs, medicaments and biological substances; Z88.1 Allergy status to other antibiotic agents
CPT/HCPCS: 99223-AI; 99232-AI; 99233-AI; 99239; A4216; A4217; C1751; J0610; J0696; J1170; J1200; J1720; J1815; J2270; J2405; J2543; J2550; J3010; J3411; J3475; J3480; J7030; J7070; J7131; Q9967

== ENCOUNTER 2019-09-29 10:03 | Emergency (ER) | payer BC ==
[~2019-09-29] VITALS: Ht 152.4 cm; Wt 45.5 kg
[~2019-09-29 10:03] MED LIST changes: +LOTRIMIN15 GM TOP; +PRILOSEC10 MG PO; +PROMETHAZINE12.5 M5 PO; +PROZAC 10MG10 MG PO; +QUESTRAN4 GM/9 GM PO
[2019-09-29 10:12] VITALS: TEMP 98.6
[2019-09-29 11:17] LABS: BASO % 0.4 % (0.0-2.0); EOS # 0.3 (0.0-0.7); EOS % 4.7 % (0-4.0); GRAN # 3.6 (1.4-6.5); GRAN % 65.2 % (42.2-75.2); HEMATOCRIT 39.9 % (35.0-45.0); HEMOGLOBIN 13.5 g/dl (12.0-15.0); LYMPH # 0.9 (1.2-3.4); LYMPH % 16.9 % (20.0-51.0); MEAN CELL VOLUME 81 fl (80.0-95.0); MEAN CORPUSCULAR HEMOGLOBIN 27 pg (26.0-32.0); MEAN CORPUSCULAR HGB CONC 34 g/dl (33.0-37.0); MEAN PLATELET VOLUME 8.1 fl (7.4-10.4); MONO # 0.7 (0.1-0.6); MONO % 12.4 % (1.7-9.3); PLATELET COUNT 337 K/mm3 (130-400); RED BLOOD COUNT 4.95 M/mm3 (4.10-5.30); REDCELL DISTRIBUTION WIDTH-CV 13.4 % (11.5-14.5)
[2019-09-29 11:28] LABS: ALBUMIN 3.6 gm/dL (3.5-5.0); BILIRUBIN,TOTAL 0.3 mg/dL (0.0-1.0); C-REACTIVE PROTEIN 3.5 mg/dL (0.0-0.9); CALCIUM 8.7 mg/dL (8.4-10.2); CREATININE, serum 0.71 (0.52-1.25); POTASSIUM 3.7 mmol/L (3.4-5.0); TOTAL PROTEIN 6.9 gm/dL (6.4-8.2)
[2019-09-29 12:24] LABS: COLLECTION METHOD CLEAN CATCH
[2019-09-29 12:34] LABS: MUCOUS Present /lpf; PH 5 (5-8); SQUAMOUS EPITHELIAL None Seen /hpf; URINE APPEARANCE Clear; URINE BACTERIA None Seen /hpf; URINE BILIRUBIN Negative (NEGATIVE); URINE BLOOD Negative (NEGATIVE); URINE COLOR Yellow; URINE GLUCOSE Negative (NEGATIVE); URINE KETONE Trace (NEGATIVE); URINE LEUKOCYTE ESTERASE Trace (NEGATIVE); URINE NITRATE Negative (NEGATIVE); URINE PROTEIN(semi-quant) Negative (NEGATIVE); URINE RBC 0-2 /hpf; URINE UROBILINOGEN Negative (NEGATIVE)
[2019-09-29] MEDS ORDERED: NEURONTIN100 MG/CAP PO (13:02)
[2019-09-29] MEDS ORDERED: NEURONTIN100 MG/CAP (13:02)
[2019-09-29] MEDS ORDERED: DESYREL 50MG50 MG PO (13:03)
[2019-09-29] MEDS ORDERED: ZOFRAN ODT4 MG PO (14:04)
[2019-09-29] MEDS ORDERED: REGLAN 5MG T5 MG/TAB PO (14:04)
[2019-09-29] MEDS ORDERED: CEFTIN 250250 MG/TAB PO (14:47)
[2019-09-29 16:00] VITALS: BP 103/52; PULSE 98
== END 2019-09-29 16:00 | disposition home or self-care (01) ==
LOC: COL.ER 10:03
PROVIDERS: Physician Assistant
DX: K50.90 Crohn's disease, unspecified, without complications (principal); R11.10 Vomiting, unspecified
CPT/HCPCS: J2060; J2270; J2405; J2765; J7030; Q9967

== ENCOUNTER 2019-10-02 16:40 | Emergency (ER) | payer BC ==
[~2019-10-02] VITALS: Ht 152.4 cm; Wt 45.5 kg
[~2019-10-02 16:40] MED LIST changes: +CEFTIN 250250 MG/TAB PO; +DESYREL 50MG50 MG PO; +NEURONTIN100 MG/CAP; +NEURONTIN100 MG/CAP PO; +REGLAN 5MG T5 MG/TAB PO
[2019-10-02 16:49] VITALS: TEMP 97.8
[2019-10-02 18:28] LABS: BASO % 0.4 % (0.0-2.0); EOS # 0.3 (0.0-0.7); EOS % 5.7 % (0-4.0); GRAN # 3.8 (1.4-6.5); GRAN % 69.8 % (42.2-75.2); HEMATOCRIT 37.6 % (35.0-45.0); HEMOGLOBIN 12.5 g/dl (12.0-15.0); LYMPH # 0.7 (1.2-3.4); LYMPH % 12.8 % (20.0-51.0); MEAN CELL VOLUME 81 fl (80.0-95.0); MEAN CORPUSCULAR HEMOGLOBIN 27 pg (26.0-32.0); MEAN CORPUSCULAR HGB CONC 33 g/dl (33.0-37.0); MEAN PLATELET VOLUME 8.8 fl (7.4-10.4); MONO # 0.6 (0.1-0.6); MONO % 10.9 % (1.7-9.3); PLATELET COUNT 342 K/mm3 (130-400); RED BLOOD COUNT 4.64 M/mm3 (4.10-5.30); REDCELL DISTRIBUTION WIDTH-CV 13.2 % (11.5-14.5)
[2019-10-02 18:52] LABS: ALBUMIN 3.3 gm/dL (3.5-5.0); BILIRUBIN,TOTAL 0.3 mg/dL (0.0-1.0); C-REACTIVE PROTEIN 8.1 mg/dL (0.0-0.9); CALCIUM 8.6 mg/dL (8.4-10.2); CREATININE, serum 0.72 (0.52-1.25); POTASSIUM 3.2 mmol/L (3.4-5.0); TOTAL PROTEIN 6.4 gm/dL (6.4-8.2)
[2019-10-02 22:00] VITALS: BP 118/80; PULSE 116
== END 2019-10-02 22:00 | disposition short-term general hospital (02) ==
LOC: COL.ER 16:40
PROVIDERS: Emergency Medicine
DX: K50.90 Crohn's disease, unspecified, without complications (principal); F32.9 Major depressive disorder, single episode, unspecified
CPT/HCPCS: J1170; J2270; J2405; J7030

== ENCOUNTER 2020-01-16 11:54 | Emergency (ER) | payer BC ==
[~2020-01-16] VITALS: Ht 152.4 cm; Wt 45.5 kg
[2020-01-16 12:01] VITALS: TEMP 97.5
[2020-01-16] MEDS ORDERED: KLONOPIN 0.5MG0.5 MG PO (12:20)
[2020-01-16 12:32] LABS: BASO % 0.3 % (0.0-2.0); EOS # 0.3 (0.0-0.7); EOS % 3.9 % (0-4.0); GRAN # 4.9 (1.4-6.5); GRAN % 73.9 % (42.2-75.2); HEMATOCRIT 43.1 % (35.0-45.0); HEMOGLOBIN 13.9 g/dl (12.0-15.0); LYMPH # 0.7 (1.2-3.4); LYMPH % 10.5 % (20.0-51.0); MEAN CELL VOLUME 82 fl (80.0-95.0); MEAN CORPUSCULAR HEMOGLOBIN 26 pg (26.0-32.0); MEAN CORPUSCULAR HGB CONC 32 g/dl (33.0-37.0); MEAN PLATELET VOLUME 8.6 fl (7.4-10.4); MONO # 0.7 (0.1-0.6); MONO % 10.8 % (1.7-9.3); PLATELET COUNT 321 K/mm3 (130-400); RED BLOOD COUNT 5.29 M/mm3 (4.10-5.30); REDCELL DISTRIBUTION WIDTH-CV 13.2 % (11.5-14.5)
[2020-01-16 12:43] LABS: ALBUMIN 3.4 gm/dL (3.5-5.0); BILIRUBIN,TOTAL 0.5 mg/dL (0.0-1.0); C-REACTIVE PROTEIN 5.6 mg/dL (0.0-0.9); CALCIUM 8.9 mg/dL (8.4-10.2); CREATININE, serum 0.96 (0.52-1.25); POTASSIUM 3.6 mmol/L (3.4-5.0); TOTAL PROTEIN 6.9 gm/dL (6.4-8.2)
[2020-01-16 13:16] LABS: COLLECTION METHOD CLEAN CATCH
[2020-01-16 13:40] LABS: HYALINE CAST >12 /lpf; MUCOUS Present /lpf; PH 5 (5-8); SQUAMOUS EPITHELIAL 0-2 /hpf; URINE APPEARANCE Hazy; URINE BACTERIA None Seen /hpf; URINE BILIRUBIN Negative (NEGATIVE); URINE BLOOD Negative (NEGATIVE); URINE COLOR Yellow; URINE GLUCOSE Negative (NEGATIVE); URINE KETONE Negative (NEGATIVE); URINE LEUKOCYTE ESTERASE Negative (NEGATIVE); URINE NITRATE Negative (NEGATIVE); URINE PROTEIN(semi-quant) 1+ (NEGATIVE); URINE RBC 0-2 /hpf; URINE UROBILINOGEN Negative (NEGATIVE)
[2020-01-16 18:50] VITALS: BP 100/77; PULSE 103
== END 2020-01-16 18:53 | disposition short-term general hospital (02) ==
LOC: COL.ER 11:54
PROVIDERS: Family Medicine
DX: K50.90 Crohn's disease, unspecified, without complications (principal); E86.0 Dehydration; R63.4 Abnormal weight loss
CPT/HCPCS: J1170; J2405; J7030; J7120

== ENCOUNTER → 2020-05-09 | Outpatient (CLI) | payer BC ==
[~2020-05-09] MED LIST changes: +KLONOPIN 0.5MG0.5 MG PO
== END ==
LOC: ZCOL.LAB 16:06
DX: Z20.828 Contact with and (suspected) exposure to other viral communicable diseases (principal)

== ENCOUNTER 2020-07-16 00:03 | Emergency (ER) | payer BC ==
[~2020-07-16] VITALS: Ht 172.7 cm; Wt 36.4 kg
[2020-07-16 00:08] VITALS: TEMP 100.5
[2020-07-16 01:20] LABS: COLLECTION METHOD CLEAN CATCH
[2020-07-16 01:27] LABS: BASO % 0.3 % (0.0-2.0); EOS # 0.4 (0.0-0.7); EOS % 6.6 % (0-4.0); GRAN % 69.2 % (42.2-75.2); LYMPH # 0.5 (1.2-3.4); LYMPH % 8.7 % (20.0-51.0); MEAN CELL VOLUME 81 fl (80.0-100.0); MEAN CORPUSCULAR HEMOGLOBIN 27 pg (27.0-31.0); MEAN CORPUSCULAR HGB CONC 33 g/dl (33.0-37.0); MEAN PLATELET VOLUME 9.4 fl (7.4-10.4); MONO # 0.9 (0.1-0.6); MONO % 14.9 % (1.7-9.3); MUCOUS Present /lpf; PH 6 (5-8); PLATELET COUNT 256 K/mm3 (130-400); RED BLOOD COUNT 5.18 M/mm3 (4.10-5.30); REDCELL DISTRIBUTION WIDTH-CV 13.2 % (11.5-14.5); SQUAMOUS EPITHELIAL 0-2 /hpf; URINE APPEARANCE Clear; URINE BACTERIA None Seen /hpf; URINE BILIRUBIN Negative (NEGATIVE); URINE BLOOD Negative (NEGATIVE); URINE COLOR Yellow; URINE GLUCOSE Negative (NEGATIVE); URINE KETONE 1+ (NEGATIVE); URINE LEUKOCYTE ESTERASE Negative (NEGATIVE); URINE NITRATE Negative (NEGATIVE); URINE PROTEIN(semi-quant) Negative (NEGATIVE); URINE RBC 0-2 /hpf; URINE UROBILINOGEN Negative (NEGATIVE)
[2020-07-16 01:40] LABS: ALBUMIN 3.8 gm/dL (3.5-5.0); BILIRUBIN,TOTAL 0.5 mg/dL (0.0-1.0); CALCIUM 8.9 mg/dL (8.4-10.2); CREATININE, serum 0.87 (0.52-1.25); POTASSIUM 3.5 mmol/L (3.4-5.0)
[2020-07-16 01:51] LABS: C-REACTIVE PROTEIN 14.3 mg/dL (0.0-0.9)
[2020-07-16 06:22] VITALS: BP 102/60; PULSE 112
== END 2020-07-16 06:22 | disposition short-term general hospital (02) ==
LOC: COL.ER 00:03
PROVIDERS: Emergency Medicine
DX: K50.90 Crohn's disease, unspecified, without complications (principal); F32.9 Major depressive disorder, single episode, unspecified; Z88.1 Allergy status to other antibiotic agents; Z88.8 Allergy status to other drugs, medicaments and biological substances
CPT/HCPCS: J1170; J2405; J2543; J2550; J7030; Q9967

== ENCOUNTER 2020-10-03 17:07 | Emergency (ER) | payer BC ==
[~2020-10-03] VITALS: Ht 152.4 cm; Wt 45.5 kg
[2020-10-03 17:17] VITALS: TEMP 100
[2020-10-03 17:58] LABS: BASO % 0.3 % (0.0-2.0); EOS # 0.1 (0.0-0.7); EOS % 1.4 % (0-4.0); GRAN # 8.1 (1.4-6.5); GRAN % 79.3 % (42.2-75.2); HEMATOCRIT 42.1 % (37.0-47.0); HEMOGLOBIN 14.1 g/dl (12.5-16.0); LYMPH # 0.5 (1.2-3.4); LYMPH % 4.4 % (20.0-51.0); MEAN CELL VOLUME 81 fl (80.0-100.0); MEAN CORPUSCULAR HEMOGLOBIN 27 pg (27.0-31.0); MEAN CORPUSCULAR HGB CONC 34 g/dl (33.0-37.0); MEAN PLATELET VOLUME 8.9 fl (7.4-10.4); MONO # 1.5 (0.1-0.6); MONO % 14.2 % (1.7-9.3); PLATELET COUNT 250 K/mm3 (130-400); RED BLOOD COUNT 5.18 M/mm3 (4.10-5.30); REDCELL DISTRIBUTION WIDTH-CV 12.8 % (11.5-14.5)
[2020-10-03 18:07] LABS: INR 1.3 (0.8-3.0)
[2020-10-03 18:10] LABS: ALBUMIN 3.7 gm/dL (3.5-5.0); CALCIUM 8.8 mg/dL (8.4-10.2); CREATININE, serum 1.03 (0.52-1.25); POTASSIUM 3.4 mmol/L (3.4-5.0); TOTAL PROTEIN 7.1 gm/dL (6.4-8.2)
[2020-10-03 18:22] LABS: C-REACTIVE PROTEIN 13.8 mg/dL (0.0-0.9)
[2020-10-03 18:47] LABS: COLLECTION METHOD CLEAN CATCH
[2020-10-03 18:54] LABS: MUCOUS Present /lpf; PH 5 (5-8); SQUAMOUS EPITHELIAL 0-2 /hpf; URINE APPEARANCE Hazy; URINE BACTERIA Occasional /hpf; URINE BILIRUBIN Negative (NEGATIVE); URINE BLOOD Negative (NEGATIVE); URINE COLOR Yellow; URINE GLUCOSE Negative (NEGATIVE); URINE KETONE 2+ (NEGATIVE); URINE LEUKOCYTE ESTERASE Negative (NEGATIVE); URINE NITRATE Negative (NEGATIVE); URINE PROTEIN(semi-quant) 1+ (NEGATIVE); URINE RBC 0-2 /hpf; URINE UROBILINOGEN Negative (NEGATIVE)
[2020-10-03] MEDS ORDERED: NORCO 325 MG-51 TAB PO (21:02)
[2020-10-03] MEDS ORDERED: PREDNISONE20 MG PO (21:02)
[2020-10-03] MEDS ORDERED: PHENERGAN 25 TA25 MG PO (21:02)
[2020-10-03 21:06] VITALS: BP 103/66; PULSE 124
[2020-10-03] MEDS ORDERED: MACROBID 1100 MG/CAP PO (21:14)
== END 2020-10-03 21:30 | disposition home or self-care (01) ==
LOC: COL.ER 17:07
PROVIDERS: Nurse Practitioner Primary Care
DX: K50.90 Crohn's disease, unspecified, without complications (principal)
CPT/HCPCS: J0696; J1885; J2270; J2405; J2550; J2930; J7030; J7040; Q9967